=== PATIENT | male | born 1950 | race Caucasian/White ===

== ENCOUNTER 2018-07-13 12:15 | Day surgery (SDC) | payer OTHER, MEDICARE ==
[2018-07-13] MEDS ORDERED: ALBUTEROL 3 ML DEYVIAL ONE (12:57)
[2018-07-13] MEDS ORDERED: EPINEPHrine 1 MG/ML INJ ONE (12:57)
[2018-07-13] MEDS ORDERED: NS 500 ML IV ONE (12:58)
[2018-07-13] MEDS ORDERED: fentaNYL 100 MCG/2 ML INJ ONE (12:58)
[2018-07-13] MEDS ORDERED: LIDOCAINE HCL 4% TOPICAL SOLN 50ML ONE (12:58)
[2018-07-13] MEDS ORDERED: LIDOCAINE 1% 300 MG/30 ML SDV ONE (12:58)
[2018-07-13] MEDS ORDERED: ALBUTEROL 3 ML DEYVIAL IH ONE (12:58)
[2018-07-13] MEDS ORDERED: LIDOCAINE 2% JELLY 6 ML TOPICAL SYR ONE (12:58)
[2018-07-13] MEDS ORDERED: MIDAZOLAM 2 MG/2 ML VIAL ONE (12:58)
[2018-07-13] MEDS ORDERED: LR 1,000 ML IV SCH (13:30)
[2018-07-13] MEDS ORDERED: fentaNYL 100 MCG/2 ML INJ IVP ONE (14:27)
[2018-07-13] MEDS ORDERED: MIDAZOLAM 2 MG/2 ML VIAL IVP ONE (14:27)
== END 2018-07-13 15:15 | disposition home or self-care (01) ==
DX: R91.8 Other nonspecific abnormal finding of lung field (principal)